=== PATIENT | female | born 2005 | race Caucasian/White ===

== ENCOUNTER 2023-06-24 18:55 | Emergency (ER) | payer BC, SELFPAY ==
[2023-06-24 19:02] VITALS: BP 120/76; PULSE 100; RESP 16; TEMP 36.7; O2SAT 97; BMI 23.8
--- NOTE | 2023-06-24 19:16 | ED.ABDPAIN1 ---
HPI - Abdominal Pain General Chief Complaint: Abdominal Pain Stated Complaint: Abdominal Pain Time Seen by Provider: 06/24/23 19:01 Source: patient Mode of arrival: walk-in History of Present Illness HPI narrative: 18-year-old female past medical history Bechets autoimmune disorder presents with right lower quadrant pain that is been intermittent for 3 days. She went to [facility] ER last night and was started on prednisone and lidocaine cream for the ulcers in her mouth and vaginal area from her autoimmune disorder. She states that she did not address the pain last night. She does not have the pain right now. Denies radiation of pain. She had a bowel movement today. She is sexually active and not on control and her last sexual intercourse was 2 weeks ago. Last menstrual period was 3 weeks ago and she states that she is supposed to start next week. Denies abnormal vaginal discharge or risk of STDs. She has felt a little nauseous. Denies fever, back pain, dysuria, v/d Related Data Home Medications Medication Instructions Recorded Confirmed lidocaine 5 % topical ointment 06/24/23 prednisone 10 mg tablet mg 06/24/23 Previous Rx's Medication Instructions Recorded nitrofurantoin 100 mg PO BID 5 days #10 caps 06/24/23 monohydrate/macrocrystals 100 mg capsule (Macrobid) Allergies Allergy/AdvReac Type Severity Reaction Status Date / Time clindamycin Allergy Intermediate Verified 06/24/23 19:07 Review of Systems ROS Status of ROS 10 or more systems reviewed and unremarkable except as noted in history and below PFSH PFSH Social History Smoking status: Never smoker Exam Narrative Exam Narrative: General: no distress, talking in full an complete sentences skin: warm, dry, intact head: normocephalic, atraumatic eyes: EOMI nose: nares patent neck: supple, trachea midline respiratory: non-labored extremities: FROM x 4, strength +5/5 abd: soft, minimal RLQ tenderness, no guarding or rigidity, no peritoneal signs neuro: A&Ox3 psych: appropriate mood and affect, cooperative Constitutional Vital Signs, click to edit/add: Last Vital Signs Temp 98.1 F 06/24/23 19:02 Pulse 100 H 06/24/23 19:02 Resp 16 06/24/23 19:02 BP 120/76 06/24/23 19:02 Pulse Ox 97 06/24/23 19:02 O2 Del Method Room Air 06/24/23 19:02 Course Vital Signs Vital signs: Vital Signs Temperature 98.1 F 06/24/23 19:02 Pulse Rate 100 H 06/24/23 19:02 Respiratory Rate 16 06/24/23 19:02 Blood Pressure 120/76 06/24/23 19:02 Pulse Oximetry 97 06/24/23 19:02 Oxygen Delivery Method Room Air 06/24/23 19:02 Temperature 98.1 F 06/24/23 19:02 Pulse Rate 100 H 06/24/23 19:02 Respiratory Rate 16 06/24/23 19:02 Blood Pressure 120/76 06/24/23 19:02 Pulse Oximetry 97 06/24/23 19:02 Oxygen Delivery Method Room Air 06/24/23 19:02 MDM - Abdominal Pain MDM Narrative Medical decision making narrative: I offered medication for nausea patient declines. WBC 18.2, but she is on prednisone. Final read of transvaginal ultrasound shows a a complex structure to the left ovary which may represent hemorrhagic cyst, but her pain is on the right. No other significant abnormalities. UA positive for blood, nitrate, leukocytes, WBCs bacteria also has a moderate amount of epithelial cells and she states that she was not given a wipe for the urine sample. Symptoms and exam are not consistent with a surgical abdomen that she states that she does not have the pain at this moment and will be treated with Macrobid for a UTI and follow-up with family doctor. afebrile, not tachypneic, not tachycardic, tolerating p.o., not hypoxic, non toxic appearing and ambulating at baseline and hemodynamically stable to be d/c. answered all questions. educated on SE of meds. pt in agreement with tx. educated when to return to ER. Lab Data Labs: Lab Results 06/24/23 06/24/23 Range/Units 19:20 19:45 WBC 18.2 H (4.0-11.0) 10^3/uL RBC 4.86 (4.20-5.40) 10^6/uL Hgb 13.5 (12.0-16.0) g/dL Hct 40.5 (36.0-48.0) % MCV 83.3 (81.0-99.0) fL MCH 27.8 (26.7-34.0) pg MCHC 33.3 (29.9-35.2) g/dL RDW 12.9 (11.0-15.0) % Plt Count 292 (150-450) 10^3/uL MPV 9.3 L (9.5-13.5) fL Neut % (Auto) 89.2 H (43.0-75.0) % Lymph % (Auto) 7.7 L (20.5-60.0) % [place] % (Auto) 2.2 (1.7-12.0) % Eos % (Auto) 0.0 L (0.9-7.0) % Baso % (Auto) 0.1 L (0.2-2.0) % Neut # (Auto) 16.3 H (1.4-6.5) 10^3/uL Lymph # (Auto) 1.4 (1.2-3.8) 10^3/uL [place] # (Auto) 0.4 (0.3-0.8) 10^3/uL Eos # (Auto) 0.0 (0.0-0.7) 10^3/uL Baso # (Auto) 0.0 (0.0-0.1) 10^3/uL Abs Immat Gran (auto) 0.15 H (0.00-0.03) 10^3/uL Imm/Tot Granulo (auto) 0.8 H (0.0-0.5) % Sodium 136 (136-145) mmol/L Potassium 4.2 (3.5-5.1) mmol/L Chloride 105 (98-107) mmol/L Carbon Dioxide 25.0 (21.0-32.0) mmol/L Anion Gap 10.2 BUN 14.0 (7.0-18.0) mg/dL Creatinine 0.81 (0.55-1.02) mg/dL Est GFR ( Amer) >60 (>=60) Est GFR (Non-Af Amer) >60 (>=60) BUN/Creatinine Ratio 17.3 Glucose 119 H (74-106) mg/dL Calcium 9.2 (8.5-10.1) mg/dL Magnesium 2.3 (1.8-2.4) mg/dL Total Bilirubin 0.2 (0.2-1.0) mg/dL AST 12 L (15-37) U/L ALT 18 (14-59) U/L Alkaline Phosphatase 66 (46-116) U/L Total Protein 8.3 H (6.4-8.2) g/dL Albumin 3.9 (3.4-5.0) g/dL Globulin 4.4 g/dL Albumin/Globulin Ratio 0.9 Urine Color Lt. yellow (YELLOW) Urine Clarity Clear (CLEAR) Urine pH 6.5 (5.0-9.0) Ur Specific [place] 1.010 (1.005-1.025) Urine Protein Negative (NEG/TRACE) mg/dL Urine Glucose (UA) Negative (NEGATIVE) mg/dL Urine Ketones Negative (NEGATIVE) mg/dL Urine Occult Blood Small A (NEGATIVE) Urine Nitrite Positive A (NEGATIVE) Urine Bilirubin Negative (NEGATIVE) Urine Urobilinogen 0.2 (0.2-1.0) EU/dL Ur Leukocyte Esterase Moderate A (NEGATIVE) Urine RBC 0-2 (0-2) #/HPF Urine WBC 5-10 A (NONE SEEN) #/HPF Ur Squamous Epith Cells Moderate A (NONE/RARE) #/LPF Urine Crystals None seen (None Seen) #/HPF Urine Bacteria Small A (NONE SEEN) #/HPF Urine Casts None seen (NONE SEEN) #/LPF Urine Mucus None seen (NONE SEEN) Ur Culture Indicated? Yes Discharge Plan Discharge Chief Complaint: Abdominal Pain Clinical Impression: Hemorrhagic cyst of left ovary UTI (urinary tract infection) Qualifiers: Urinary tract infection type: acute cystitis Hematuria presence: without hematuria Qualified Code(s): N30.00 - Acute cystitis without hematuria Abdominal pain Qualifiers: Abdominal location: lower abdomen, unspecified Qualified Code(s): R10.30 - Lower abdominal pain, unspecified Patient Disposition: Home, Self-Care Time of Disposition Decision: 20:54 Condition: Good Mode of Transportation: Private Vehicle Prescriptions / Home Meds: New nitrofurantoin monohyd/m-cryst [Macrobid] 100 mg capsule 100 mg PO BID 5 Days Qty: 10 0RF Rx Instructions: must administer with a meal/food No Action prednisone 10 mg tablet lidocaine 5 % ointment Instructions: Ovarian Cyst (ED), Urinary Tract Infection in Women (ED), Abdominal Pain (ED) Stand Alone Forms: Portal Instructions Referrals: Carlos Darby DO [Physician] - 1 week Physician,Non-Staff, [Primary Care Provider] - 1 week
--- NOTE | 2023-06-24 19:18 | US_ITS ---
The [address] [address] Patient Name: VALERY NGUYEN MRN: [id number] date: 2005 Sex: F Assigned Patient Location: ER Current Patient Location: [facility] Accession/Order Number: [id number] Exam Date: 06/24/2023 19:20 Report Date: 06/24/2023 20:31 At the request of: BETTY QUESADA Procedure: US pelvis transvaginal EXAM: US pelvis transvaginal HISTORY: r pelvic pain COMPARISON: None. TECHNIQUE: Transabdominal and endovaginal approach pelvic ultrasound is performed. Multiple grayscale and color Doppler images are submitted for review. FINDINGS: The uterus measures 7.8 x 4.5 x 5.5 cm and demonstrates normal morphology with normal echotexture. No uterine mass is visualized. The endometrium measures hasn't unremarkable appearance and measures 12 mm in thickness. The right ovary measures 4.3 x 2.1 x 2.1 cm and demonstrates normal morphology with normal Doppler flow. The left ovary measures 3.7 x 2.4 x 2.1 cm. A 1.4 x 1.4 x 1.2 cm complex structure is seen in the left ovary. The left ovary demonstrates normal Doppler flow. Small cul-de-sac free fluid is seen. US/US pelvis transvaginal IMPRESSION: Approximately 1.4 x 1.4 x 1.2 cm complex structure is seen left ovary, which may represent a hemorrhagic cyst. If follow-up is desired, follow-up imaging may be obtained in 10-12 weeks to confirm resolution. Bilateral ovaries demonstrate normal Doppler flow. Small cul-de-sac free fluid. Electronically authenticated by: LANEY ZAMUDIO Date: 06/24/2023 20:31
[2023-06-24 19:25] LABS: Basophils Percent Auto 0.1 % (0.2-2.0); Hematocrit 40.5 % (36.0-48.0); Hemoglobin 13.5 g/dL (12.0-16.0); Immature Granulocytes Abs Auto 0.15 10^3/uL (0.00-0.03); Immature Granulocytes Pct Auto 0.8 % (0.0-0.5); Lymphocytes Absolute Auto 1.4 10^3/uL (1.2-3.8); Lymphocytes Percent Auto 7.7 % (20.5-60.0); Mean Corpuscular HGB Conc 33.3 g/dL (29.9-35.2); Mean Corpuscular Hemoglobin 27.8 pg (26.7-34.0); Mean Corpuscular Volume 83.3 fL (81.0-99.0); Mean Platelet Volume 9.3 fL (9.5-13.5); Monocytes Absolute Auto 0.4 10^3/uL (0.3-0.8); Monocytes Percent Auto 2.2 % (1.7-12.0); Neutrophils Absolute Auto 16.3 10^3/uL (1.4-6.5); Neutrophils Percent Auto 89.2 % (43.0-75.0); Platelet Count 292 10^3/uL (150-450); Red Blood Count 4.86 10^6/uL (4.20-5.40); Red Cell Distribution Width 12.9 % (11.0-15.0); White Blood Count 18.2 10^3/uL (4.0-11.0)
[2023-06-24 19:44] LABS: Alanine Aminotransferase 18 U/L (14-59); Albumin Globulin Ratio 0.9; Albumin Level 3.9 g/dL (3.4-5.0); Alkaline Phosphatase 66 U/L (46-116); Anion Gap 10.2; Aspartate Amino Transferase 12 U/L (15-37); BUN Creatinine Ratio 17.3; Bilirubin Total 0.2 mg/dL (0.2-1.0); Calcium 9.2 mg/dL (8.5-10.1); Chloride 105 mmol/L (98-107); Estimated GFR (African America >60 (>=60); Estimated GFR (Non-African Ame >60 (>=60); Globulin 4.4 g/dL; Glucose 119 mg/dL (74-106); Magnesium 2.3 mg/dL (1.8-2.4); Potassium 4.2 mmol/L (3.5-5.1); Sodium 136 mmol/L (136-145); Total Protein 8.3 g/dL (6.4-8.2)
[2023-06-24 20:34] LABS: Bilirubin Urine NEGATIVE (NEGATIVE); Blood Urine SMALL (NEGATIVE); Clarity Urine CLEAR (CLEAR); Color Urine LT. YELLOW (YELLOW); Glucose Urine UA NEGATIVE (NEGATIVE); Ketones Urine NEGATIVE (NEGATIVE); Leukocyte Esterase Urine MODERATE (NEGATIVE); Nitrite Urine POSITIVE (NEGATIVE); Protein Urine NEGATIVE (NEG/TRACE); Urobilinogen Urine 0.2 EU/dL (0.2-1.0); pH Urine 6.5 (5.0-9.0)
[2023-06-24 20:41] LABS: Bacteria Urine SMALL #/HPF (NONE SEEN); Mucus Urine NONE SEEN (NONE SEEN); RBC Urine 0-2 #/HPF (0-2)
[2023-06-24 20:42] LABS: Cast Seen? NONE SEEN #/LPF (NONE SEEN); Crystals Seen? None Seen #/HPF (None Seen); Squamous Epithelial Cell Urine MODERATE #/LPF (NONE/RARE)
[2023-06-24 20:43] LABS: Urine Culture Indicated YES
[2023-06-24] MEDS: NITROFURANTOIN MONOHYD/MAC-CRST 100 MG CAPSULE PO (21:25)
[2023-06-24 21:30] VITALS: PULSE 78; RESP 14; TEMP 36.7; O2SAT 97
== END 2023-06-24 21:33 | disposition home or self-care (01) ==
PROVIDERS: Physician Assistant; Emergency Provider Emergency Medicine
DX: N30.00 Acute cystitis without hematuria (principal); N83.202 Unspecified ovarian cyst, left side; R10.30 Lower abdominal pain, unspecified; Z79.899 Other long term (current) drug therapy; D89.89 Other specified disorders involving the immune mechanism, not elsewhere classified
CPT/HCPCS: 36415; 76830; 80053; 81001; 83735; 85025; 87086; 99284